=== PATIENT | female | born 1965 | race Caucasian/White ===

== ENCOUNTER 2019-04-04 09:43 | Emergency (ER) | payer OTHER ==
[~2019-04-04] VITALS: Ht 162.6 cm; Wt 92.5 kg
[2019-04-04 09:43] VITALS: BP_SYST 152
--- NOTE | 2019-04-04 09:43 | NUR ---
PLACED IN BED #3
--- NOTE | 2019-04-04 09:43 | NUR ---
BROUGHT IN BY [facility] AND TRIAGED. REPORT GIVEN TO
--- NOTE | 2019-04-04 09:45 | NUR ---
Patient is awake, alert, and oriented x4. Patient brought in by S, states she had a migraine while at home and the "ADT pierce" called 911. Patient states that she has a history of migraines and that symptoms are now resolved.
--- NOTE | 2019-04-04 10:45 | NUR ---
ER Dr. Wharton at bedside examining patient.
[2019-04-04 11:14] VITALS: BP_SYST 138
--- NOTE | 2019-04-04 11:14 | NUR ---
Patient given written and verbal discharge instructions and verbalizes understanding. ER MD discussed with patient the results and treatment provided. Patient in stable condition. ID arm band removed. Rx of given. Patient educated on pain management and to follow up with PMD. Pain Scale 0/10. Opportunity for questions provided and answered. Medication side effect fact sheet provided.
== END 2019-04-04 11:14 | disposition home or self-care (01) ==
LOC: SED 09:43
DX: G43.119 Migraine with aura, intractable, without status migrainosus (principal); Z90.710 Acquired absence of both cervix and uterus
CPT/HCPCS: 99283